=== PATIENT | female | born 1960 | race Two or more races ===

== ENCOUNTER 2018-01-07 10:16 | Outpatient (CLI) | payer OTHER ==
[~2018-01-07 10:16] MED LIST: SYNTHROID50 MCG
== END 2018-01-07 10:26 | disposition home or self-care (01) ==
LOC: LAB 10:16
DX: D64.9 Anemia, unspecified (principal); E75.6 Lipid storage disorder, unspecified; N39.0 Urinary tract infection, site not specified

== ENCOUNTER → 2018-04-02 09:26 | Outpatient (CLI) | payer OTHER | END | disposition home or self-care (01) | LOC: LAB 09:26 | DX: E78.00 Pure hypercholesterolemia, unspecified (principal); E89.0 Postprocedural hypothyroidism; E11.65 Type 2 diabetes mellitus with hyperglycemia; E21.3 Hyperparathyroidism, unspecified ==

== ENCOUNTER 2018-05-23 08:38 | Outpatient (CLI) | payer OTHER | END 2018-05-23 17:00 | disposition home or self-care (01) | LOC: TOM 08:38 | DX: R10.84 Generalized abdominal pain (principal) ==

== ENCOUNTER 2018-10-23 08:51 | Outpatient (CLI) | payer OTHER | END 2018-10-23 08:56 | disposition home or self-care (01) | LOC: LAB 08:51 | DX: D50.8 Other iron deficiency anemias (principal); N39.0 Urinary tract infection, site not specified; E78.2 Mixed hyperlipidemia ==

== ENCOUNTER 2018-11-11 08:59 | Outpatient (CLI) | payer OTHER | END 2018-11-11 10:58 | disposition home or self-care (01) | LOC: LAB 08:59 | DX: D64.89 Other specified anemias (principal) ==

== ENCOUNTER 2018-12-20 09:42 | Outpatient (CLI) | payer OTHER | END 2018-12-20 15:34 | disposition home or self-care (01) | LOC: LAB 09:42 | DX: E11.40 Type 2 diabetes mellitus with diabetic neuropathy, unspecified (principal); D51.8 Other vitamin B12 deficiency anemias; E13.42 Other specified diabetes mellitus with diabetic polyneuropathy; D86.0 Sarcoidosis of lung; M15.0 Primary generalized (osteo)arthritis; E03.8 Other specified hypothyroidism; G72.49 Other inflammatory and immune myopathies, not elsewhere classified; G99.0 Autonomic neuropathy in diseases classified elsewhere ==

== ENCOUNTER → 2019-03-19 07:39 | Outpatient (CLI) | payer OTHER | END | disposition home or self-care (01) | LOC: LAB 07:39 | DX: D64.89 Other specified anemias (principal); N39.0 Urinary tract infection, site not specified; E11.8 Type 2 diabetes mellitus with unspecified complications; E78.00 Pure hypercholesterolemia, unspecified; E03.8 Other specified hypothyroidism; E55.9 Vitamin D deficiency, unspecified; Z12.11 Encounter for screening for malignant neoplasm of colon; I10 Essential (primary) hypertension ==

== ENCOUNTER → 2019-07-14 07:39 | Outpatient (CLI) | payer OTHER | END | disposition home or self-care (01) | LOC: LAB 07:39 | DX: N39.0 Urinary tract infection, site not specified (principal); D64.89 Other specified anemias; E03.8 Other specified hypothyroidism; E13.69 Other specified diabetes mellitus with other specified complication ==

== ENCOUNTER 2020-07-12 09:34 | Outpatient (CLI) | payer OTHER | END 2020-07-12 09:41 | disposition home or self-care (01) | LOC: LAB 09:34 | PROVIDERS: ATTEND Psychiatry & Neurology Neurology | DX: D64.89 Other specified anemias (principal); N39.0 Urinary tract infection, site not specified; E03.8 Other specified hypothyroidism ==

== ENCOUNTER 2020-09-16 08:19 | Outpatient (CLI) | payer OTHER | END 2020-09-16 08:27 | disposition home or self-care (01) | LOC: TOM 08:19 | PROVIDERS: ATTEND Psychiatry & Neurology Neurology | DX: R10.2 Pelvic and perineal pain (principal) ==

== ENCOUNTER 2020-10-22 09:39 | Outpatient (CLI) | payer OTHER | END 2020-10-22 18:00 | disposition home or self-care (01) | LOC: LAB 09:39 | PROVIDERS: ATTEND Psychiatry & Neurology Neurology | DX: E03.8 Other specified hypothyroidism (principal); D68.0 Von Willebrand disease ==

== ENCOUNTER 2020-12-18 08:50 | Outpatient (CLI) | payer OTHER | END 2020-12-18 09:00 | disposition home or self-care (01) | LOC: LAB 08:50 | PROVIDERS: ATTEND Psychiatry & Neurology Neurology | DX: E11.9 Type 2 diabetes mellitus without complications (principal) ==

== ENCOUNTER 2021-06-08 09:10 | Outpatient (CLI) | payer OTHER | END 2021-06-08 09:19 | disposition home or self-care (01) | LOC: LAB 09:10 | PROVIDERS: ATTEND Psychiatry & Neurology Neurology | DX: E16.1 Other hypoglycemia (principal); D64.89 Other specified anemias; E03.8 Other specified hypothyroidism ==

== ENCOUNTER 2021-09-03 08:54 | Outpatient (CLI) | payer OTHER | END 2021-09-03 09:20 | disposition home or self-care (01) | LOC: LAB 08:54 | PROVIDERS: ATTEND Psychiatry & Neurology Neurology | DX: D64.89 Other specified anemias (principal) ==

== ENCOUNTER 2021-12-24 08:16 | Outpatient (CLI) | payer OTHER | END 2021-12-24 08:20 | disposition home or self-care (01) | LOC: LAB 08:16 | PROVIDERS: ATTEND Psychiatry & Neurology Neurology | DX: D64.9 Anemia, unspecified (principal); E03.9 Hypothyroidism, unspecified; N39.0 Urinary tract infection, site not specified; E78.70 Disorder of bile acid and cholesterol metabolism, unspecified ==

== ENCOUNTER → 2022-02-13 10:49 | Outpatient (CLI) | payer OTHER | END | disposition home or self-care (01) | LOC: LAB 10:49 | PROVIDERS: ATTEND Psychiatry & Neurology Neurology | DX: D64.9 Anemia, unspecified (principal); U07.1 COVID-19; N39.0 Urinary tract infection, site not specified; I10 Essential (primary) hypertension ==

== ENCOUNTER 2022-03-10 09:45 | Outpatient (CLI) | payer OTHER | END 2022-03-10 09:53 | disposition home or self-care (01) | LOC: LAB 09:45 | PROVIDERS: ATTEND Psychiatry & Neurology Neurology | DX: D64.9 Anemia, unspecified (principal); N39.0 Urinary tract infection, site not specified; E16.2 Hypoglycemia, unspecified ==

== ENCOUNTER 2022-03-11 10:43 | Outpatient (CLI) | payer OTHER | END 2022-03-11 15:00 | disposition home or self-care (01) | LOC: LAB 10:43 | PROVIDERS: ATTEND Psychiatry & Neurology Neurology | DX: U07.1 COVID-19 (principal); J01.90 Acute sinusitis, unspecified ==

== ENCOUNTER 2023-05-15 07:28 | Outpatient (CLI) | payer OTHER | END 2023-05-15 07:29 | disposition home or self-care (01) | LOC: LAB 07:28 | PROVIDERS: ATTEND Ophthalmology | DX: R07.89 Other chest pain (principal); D68.8 Other specified coagulation defects; I10 Essential (primary) hypertension ==

== ENCOUNTER → 2023-06-09 09:46 | Outpatient (CLI) | payer OTHER | END | disposition home or self-care (01) | LOC: LAB 09:46 | DX: E55.9 Vitamin D deficiency, unspecified (principal); E78.6 Lipoprotein deficiency; D50.8 Other iron deficiency anemias; E08.69 Diabetes mellitus due to underlying condition with other specified complication; E03.9 Hypothyroidism, unspecified; E56.9 Vitamin deficiency, unspecified; E63.9 Nutritional deficiency, unspecified; E11.9 Type 2 diabetes mellitus without complications; R53.81 Other malaise; R88.8 Abnormal findings in other body fluids and substances ==

== ENCOUNTER 2024-09-26 09:44 | Outpatient (CLI) | payer OTHER | END 2024-09-26 09:48 | disposition home or self-care (01) | LOC: RAD 09:44 | PROVIDERS: ATTEND Internal Medicine Endocrinology, Diabetes & Metabolism | DX: J18.9 Pneumonia, unspecified organism (principal) ==

== ENCOUNTER 2024-10-15 07:50 | Outpatient (CLI) | payer OTHER | END 2024-10-15 07:57 | disposition home or self-care (01) | LOC: TOM 07:50 | DX: R10.9 Unspecified abdominal pain (principal) ==

== ENCOUNTER → 2024-11-28 | Outpatient (CLI) | payer OTHER | END | disposition home or self-care (01) | LOC: RAD 09:45 | PROVIDERS: ATTEND Psychiatry & Neurology Neurology | DX: C90.00 Multiple myeloma not having achieved remission (principal) ==